=== PATIENT | male | born 1960 | race Caucasian/White ===

== ENCOUNTER 2016-11-27 18:46 | Emergency (ER) | payer BC ==
--- NOTE | 2016-11-27 20:30 | UC ---
Ear Complaint HPI - HPI Summary HPI Summary: left ear plugged for about a week after swimming mild pain - History of Current Complaint Chief Complaint: UCEar Stated Complaint: EAR COMPLAINT Time Seen by Provider: 11/27/16 20:06 Hx Obtained From: Patient Onset/Duration: Gradual Onset, Lasting Days Severity Initially: Mild Severity Currently: Mild Pain Intensity: 2 Pain Scale Used: 0-10 Numeric Associated Signs/Symptoms: Positive: Hearing Loss - Allergies/Home Medications Allergies/Adverse Reactions: Allergies Allergy/AdvReac Type Severity Reaction Status Date / Time No Known Allergies Allergy Verified 11/27/16 19:39 PMH/Surg Hx/FS Hx/Imm Hx Previously Healthy: Yes - Surgical History Surgical History: Yes Surgery Procedure, Year, and Place: LEFT KNEE AND ELBOW SX, sinus surgery - Family History Known Family History: Positive: Hypertension - Social History Alcohol Use: Occasionally Substance Use Type: None Smoking Status (MU): Never Smoked Tobacco Review of Systems Constitutional: Negative Skin: Negative Eyes: Negative ENT: Ear Ache Respiratory: Negative Cardiovascular: Negative Gastrointestinal: Negative Genitourinary: Negative Motor: Negative Neurovascular: Negative Musculoskeletal: Negative Neurological: Negative Psychological: Negative All Other Systems Reviewed And Are Negative: Yes Physical Exam Triage Information Reviewed: Yes Appearance: Well-Appearing, No Pain Distress, Well-Nourished Vital Signs: Initial Vital Signs Temp 98 F 11/27/16 19:31 Pulse 63 11/27/16 19:31 Resp 18 11/27/16 19:31 BP 147/96 11/27/16 19:31 Vital Signs Reviewed: Yes Eyes: Positive: Conjunctiva Clear ENT: Negative: Hearing grossly normal, TMs normal - left TM unable to be visualized due to cerumen no tragl tenderness, Tonsillar swelling, Tonsillar exudate, Trismus, Muffled/hoarse voice Neck: Positive: Supple, Nontender, No Lymphadenopathy Respiratory: Positive: Lungs clear, Normal breath sounds, No respiratory distress, No accessory muscle use Cardiovascular: Positive: RRR, No Murmur Musculoskeletal: Positive: ROM Intact, No Edema Neurological: Positive: Alert Ear Complaint Course/Dx - Course Course Of Treatment: pt advised of elevated BP and need to see his MD for follow up - Differential Dx/Diagnosis Provider Diagnoses: left cerumen impaction Discharge - Discharge Plan Condition: Stable Disposition: HOME Patient Education Materials: Cerumen Impaction (ED) Referrals: Quita Orantes MD [Primary Care Provider] - Additional Instructions: call for any questions return for any problems
[2016-11-27 20:32] VITALS: BP 135/90
== END 2016-11-27 20:35 | disposition home or self-care (01) ==
LOC: UCCORT 18:46
DX: H61.22 Impacted cerumen, left ear (principal)
CPT/HCPCS: 99203; G0463

== ENCOUNTER 2017-06-06 07:02 | Emergency (ER) | payer BC ==
--- OUTSIDE RECORDS SUMMARY | 2017-06-06 07:19 | XMS REPORT ---
:1960 External Reference #:[id number] Author Organization [facility] Address [address] [address] Phone [phone] Care Team Providers Name Role Phone Holly Wagner MD Care Team Information Regulatory Lead Unavailable Payers Type Date Identification Numbers Payment Provider Subscriber Commercial Effective: Policy Number: [id number] [facility] Commercial [employer] 2013 PayID: [id number] [address] [address] [place] [address] Problems Date Description Provider Status Onset: 09/22/2014 History of cerebrovascular accident Holly Wagner MD Active without residual deficits Onset: 09/22/2014 Atopic dermatitis Holly Wagner MD Resolved Resolved: 05/08/2017 Family History Date Family Member(s) Problem(s) Comments Father Heart Disease age 76 Mother Glaucoma Mother Hypertension Social History Type Date Description Comments Education Higest level completed, from [employer] in Bachelor's Degree accounting Marital Status Lives With Spouse Lives With Son Lives With Daughter Diet Healthy, Well Balanced 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 ETOH Use Occasionally consumes alcohol Smoking Patient has never smoked Enjoy Exercising Enjoys Exercising 3-4 times weekly Allergies, Adverse Reactions, Alerts Date Description Reaction Status Severity Comments 09/22/2014 NKDA active Medications Medication Date Status Form Strength Qnty SIG Indications Ordering Provider Multi Vitamin Active Tablets 1 by Unknown Daily 00 mouth every day Aspirin Active Tablets DR 81mg 1 by Unknown 00 mouth every day Vital Signs Date Vital Result Comment 05/08/2017 Weight 219.00 lb Heart Rate 76 /min BP Systolic 130 mmHg BP Diastolic 80 mmHg Respiratory Rate 18 /min Height 73.6 inches 6'1.60 05/08/17 BMI (Body Mass Index) 28.4 kg/m2 11/16/2015 Weight 210.00 lb Heart Rate 76 /min BP Systolic 122 mmHg BP Diastolic 70 mmHg Respiratory Rate 18 /min Height 73.6 inches 6'1.60" 11/16/15 BMI (Body Mass Index) 27.3 kg/m2 09/22/2014 Weight 222.25 lb Heart Rate 80 /min BP Systolic 120 mmHg BP Diastolic 76 mmHg Respiratory Rate 18 /min Height 73.6 inches 6'1.60" 09/22/14 BMI (Body Mass Index) 28.8 kg/m2 Results Test Date Test Result H/L Range Note Laboratory test finding 03/07/2017 Fit(Fecal Occult Negative Negative Blood) CBC With Auto Diff 01/12/2015 WBC 6.4 K/uL 4.1-11.0 1 RBC 4.90 M/uL 4.60-6.10 1 Hemoglobin 15.7 gm/dL 13.5-18.0 1 Hematocrit 45.5 % 41.0-53.0 1 MCV 92.8 fL 80.0-97.0 1 MCH 32.1 pg High 27.0-32.0 1 MCHC 34.6 g/dL 32.0-36.0 1 RDW 12.2 % 11.5-14.5 1 PLT Count 218 K/ul 140-400 1 Neutrophil 63.7 % 35.0-75.0 1 Lymphocyte 24.2 % 16.0-52.0 1 Monocyte 10.0 % 2.0-10.0 1 Eosinophil 1.7 % 0.0-5.0 1 Basophil 0.4 % 0.0-4.0 1 Abs Neutrophils 4.1 K/uL 2.1-8.0 1 Abs Lymphocytes 1.5 K/uL 0.8-5.5 1 Abmon 0.6 K/uL 0.1-1.0 1 Abs Eosinophils 0.1 K/uL 0.0-0.5 1 Abs Basophils 0.0 K/uL 0.0-0.3 1 Lipid 01/12/2015 Cholesterol 132 mg/dL 50-199 1 Triglycerides 105 mg/dL 30-200 1 HDL 40 mg/dL 29-71 1, 2 Chol/ HDL Ratio 3.3 ratio Low 4.0-6.7 1 VLDL 21 mg/dL 2-29 1 LDL (Calc) 71 mg/dL 20-99 1, 3 Comprehensive Metabolic (CMP) 01/12/2015 Sodium 134 mmol/L 134-142 1 Potassium 4.4 mmol/L 3.5-5.2 1 Chloride 102 mmol/L 97-109 1 Carbon Dioxide 26 mmol/L 24-34 1 Glucose 94 mg/dL 70-105 1 BUN 18 mg/dL 6-26 1 Creatinine 1.0 mg/dL 0.5-1.4 1 Calcium 9.2 mg/dL 8.5-10.2 1 Total Protein 6.6 g/dL 6.0-8.0 1 Albumin 4.4 g/dL 3.6-4.9 1 Globulin 2.2 g/dL 2.0-3.5 1 A/G Ratio 2.0 Ratio 1.0-2.2 1 Total Bilirubin 0.7 mg/dL 0.1-1.3 1 Alkaline Phosphatase 53 U/L 24-140 1 Alt 24 U/L 3-42 1 Ast 21 U/L 8-42 1 Anion Gap 10 mmol/L 6-14 1 Kamala Egfr >60 >60 1, 4 Non Kamala Egfr >60 >60 1, 5 Laboratory test finding 01/12/2015 PSA 2.640 ng/mL 0.000-4.000 1, 6 1 soon 2 Per NCEP ATP III Guidelines: Results lower than 40 mg/dL are suggestive of increased risk for coronary artery disease. Results > or=to 60 mg/dL are considered a negative risk factor. 3 Per NCEP ATP III Guidelines: Normal Population <130 Patients with medical conditions: CHD/DM Optimal: <100 Borderline high: 130-159 High: 160-189 Very high: >189 4 Concerning GFR Guidelines for Americans: Normal function or mild renal disease, if clinically at risk: >/=60 mL/min Moderately decreased: 30-59 Severely decreased: 15-29 Renal failure: <15 5 Concerning GFR Guidelines: Normal function or mild renal disease, if clinically at risk: >/=60 mL/min Moderately decreased: 30-59 Severely decreased: 15-29 Renal failure: <15 Glomerular Filtration Rate (GFR) is estimated based on the MDRD equation, which assumes a steady state for creatinine as recommended by the National Kidney Disease Education Program in conjunction with the National Institutes of Health and the National Kidney Foundation. Clinical conditions in which it may be necessary to measure GFR by using clearance methods include extremes of age and body size, severe malnutrition or obesity, diseases of skeletal muscle, paraplegia or quadriplegia, vegetarian diet, rapidly changing kidney function, and calculation of the dose of potentially toxic drugs that are excreted by the kidneys. 6 Beginning 06/23/06 PSA values assayed at [facility] [employer] uses an EIA methodology manufactured by [employer] for use on the DXI analyzer. Values obtained with different assay methods or kits can not be used interchangeably. Serum PSA measurement is not an absolute test for malignancy. The PSA value should be used in conjunction with information available from clinical evaluation and other diagnostic procedures. Procedures Description No Information Encounters Type Date Location Provider CPT E/M Dx Office Visit 11/16/2015 9:15a [facility] [place] [address] Z00.00 Z86.73 L20.9 Z12.5 Z13.220 Office Visit 09/22/2014 8:15a [facility] [place] [address] V70.0 691.8 V77.91 V76.44 V76.51 V12.54 Plan of Care Future Appointment(s):05/14/2018 8:15 am - Holly Wagner MD at [facility]05/08/2017 - Holly Wagner MDZ00.00 Encntr for general adult medical exam w/o abnormal findingsNew Labs:CBC With Auto DiffCMP, Comprehensive Metabolic-FComments:well male - check labs when fastingFollow up:fasting labs soon. 1 year well shxajS60.73 Prsnl hx of TIA (TIA), and cereb infrc w/o resid deficitsNew Labs: Lipid PanelComments:continue aspirin - check lipid panel - continue exercise and weight [id number] Encounter for screening for malignant neoplasm of prostateNew Labs:PSA - FCMGComments:check psaZ11.59 Encounter for screening for other viral diseasesNew Labs:Hepatitis C AntibodyComments:discussed testing for hepatis C - this is recommended for people born between 1945 and 1965. Hepatitis C is an infection of the liver that is spread from contact with infected blood. It can be cured with a tolerable medication. Untreated hepatitis C can cause cirrhosis or liver cancer. patient would like to be tested.Z68.28 Body mass index (BMI) 28.0-28.9, adultComments:The BMI is the ratio of height to weight. Weight loss is desirable. your goal BMI is between 18.9 and 25. Your are overweight. work on improving your diet to help with weight loss.AllComments:gets relief with steroid cream. this may improve with sun exposure.
[2017-06-06 07:38] VITALS: BP 135/91
--- NOTE | 2017-06-06 07:59 | UC ---
UC General HPI - HPI Summary HPI Summary: 56 yo gentleman c/o urinary freq / urg and hematuria since last night. Drank a lot of water, blood not visible today. Some diarrhea yesterday, improving. Taking peptobismal. No fever / chills. Mild low back general discomfort. No discharge. No sores / rash. Some discomfort R lower pelvis. - History of Current Complaint Chief Complaint: UCGU Stated Complaint: URINARY Time Seen by Provider: 06/06/17 07:36 Hx Obtained From: Patient Pain Intensity: 3 - Allergy/Home Medications Allergies/Adverse Reactions: Allergies Allergy/AdvReac Type Severity Reaction Status Date / Time No Known Allergies Allergy Verified 06/06/17 07:25 Home Medications: Home Medications Bismuth Subsalicylate [Pepto Bismol] 524 mg PO ONCE PRN 06/06/17 [History Confirmed 06/06/17] PMH/Surg Hx/FS Hx/Imm Hx Previously Healthy: Yes - Surgical History Surgical History: Yes Surgery Procedure, Year, and Place: LEFT KNEE AND ELBOW SX, sinus surgery - Family History Known Family History: Positive: Hypertension - Social History Alcohol Use: Occasionally Substance Use Type: None Smoking Status (MU): Never Smoked Tobacco Review of Systems Constitutional: Negative Skin: Negative Eyes: Negative ENT: Negative Respiratory: Negative Cardiovascular: Negative Gastrointestinal: Other - see hpi Genitourinary: Other - see hpi Motor: Negative Neurovascular: Negative Musculoskeletal: Negative Neurological: Negative Psychological: Negative Is Patient Immunocompromised?: No All Other Systems Reviewed And Are Negative: Yes Physical Exam Triage Information Reviewed: Yes Appearance: Well-Appearing, Well-Nourished Vital Signs: Initial Vital Signs Temp 97.9 F 06/06/17 07:33 Pulse 65 06/06/17 07:33 Resp 18 06/06/17 07:33 BP 135/91 06/06/17 07:33 Pulse Ox 100 06/06/17 07:33 ENT Exam: Normal - grossly normal Neck exam: Normal Neck: Positive: Supple Respiratory Exam: Normal - no tachypnea no dyspnea normal rate Cardiovascular Exam: Normal - normal rate normal skin color / non-diaphoretic Abdominal Exam: Other - soft ND, tender R lower pelvis no r/g. Denies groin tenderness or kajal adenopathy. Musculoskeletal Exam: Normal - normal gait Neurological Exam: Normal - grossly normal Psychological Exam: Normal - conversing easily and appropriately Course/Dx - Course Course Of Treatment: urine dip noted reviewed with pt. reviewed coa / tx plan. questions as posed answered to the best of my ability. f/u pcp in 2-3 weeks urine recheck - Differential Dx - Multi-Symptom Provider Diagnoses: hematuria Discharge - Discharge Plan Condition: Stable Disposition: HOME Patient Education Materials: Hematuria (ED) Referrals: Holly Wagner MD [Primary Care Provider] - Additional Instructions: Follow up with your doctor in 2-3 weeks for recheck. seek medical attention for worse or new problems in the meantiime. urine culture in the lab. take probiotics fer while taking antibiotics
== END 2017-06-06 08:22 | disposition home or self-care (01) ==
LOC: UCCORT 07:02
DX: R31.9 Hematuria, unspecified (principal)
CPT/HCPCS: 81003; 87086; 99212; G0463

== ENCOUNTER 2018-08-26 19:09 | Emergency (ER) | payer BC ==
--- OUTSIDE RECORDS SUMMARY | 2018-08-26 19:29 | XMS REPORT | Continuity of Care Document ---
:1960 External Reference #:[id number] Author Name Kaia Sinclair M.D. Address [address] [facility] [address] [place] [address] Care Team Providers Name Role Phone Holly Wagner MD Care Team Information Associate Loan Officer Unavailable Holly Wagner MD Primary Care Physician Unavailable Payers Date Identification Numbers Payment Provider Subscriber Effective: 2011 Policy Number: [id number] Rachel Ag Group Number: [id number] [address] [address] Group Name: [facility] RODERICK Krishnamurthy [id number] PayID: [id number] Expires: 2011 Policy Number: [id number] Rachel Ag Group Number: [id number] [address] [address] PayID: [id number] RODERICK Krishnamurthy [id number] Advance Directives Description No Information Available Problems Date Description Provider Status Onset: 12/01/2017 Screening for malignant neoplasm Kaia Sinclair M.D. Active of prostate Onset: 07/15/2017 Calculus in renal pelvis Kaia Sinclair M.D. Active Onset: 07/15/2017 Hematuria syndrome Kaia Sinclair M.D. Active Onset: 06/23/2017 Constipation Kaia Sinclair M.D. Active Onset: 06/23/2017 Retention of urine Kaia Sinclair M.D. Active Onset: 06/23/2017 Raised prostate specific antigen Kaia Sinclair M.D. Active Onset: 06/23/2017 [place] hematuria Kaia Sinclair M.D. Active Onset: 06/23/2017 Kidney stone Kaia Sinclair M.D. 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 Onset: 09/22/2014 Atopic dermatitis Holly Wagner MD Active Family History Date Family Member(s) Observation Comments Father Heart Disease Father due to Heart Disease () Mother Hypertension Mother Heart Disease Mother Glaucoma Social History Type Date Description Comments Sex Unknown Lives With Lives With Children 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 at bedtime Aspirin Active Tablets 81mg 1 po qd Unknown 000 Multivitamins Active Tablets 1 po qd Unknown 000 Probiotic Active Capsules 1 by Unknown 000 mouth every day Cipro Hx Tablets 500mg 6tabs 1 tab by Estella Sinclair - mouth Mahmoud, twice a M.D. 018 day Flomax Hx Capsules 0.4mg 90caps 1 by Dottie 018 - mouth Mahmoud, every day M.D. 018 Immunizations Description No Information Available Vital Signs Date Vital Result Comment 08/07/2018 8:48am BP Systolic 128 mmHg BP Diastolic 83 mmHg Body Temperature 96.3 F Heart Rate 78 /min Respiratory Rate 17 /min Height 73 inches 6'1" Weight 212.25 lb BMI (Body Mass Index) 28.0 kg/m2 BSA (Body Surface Area) 2.21 m2 [place] body weight in kilograms 83 kg O2 % BldC Oximetry 97 % Pain Level 0 04/10/2018 8:17am BP Systolic 144 mmHg BP Diastolic 87 mmHg Body Temperature 98.3 F Heart Rate 81 /min Respiratory Rate 15 /min Height 73 inches 6'1" Weight 227.00 lb BMI (Body Mass Index) 29.9 kg/m2 BSA (Body Surface Area) 2.27 m2 [place] body weight in kilograms 83 kg O2 % BldC Oximetry 98 % Pain Level 0 02/17/2018 8:47am BP Systolic 152 mmHg BP Diastolic 92 mmHg Body Temperature 98.5 F Heart Rate 72 /min Respiratory Rate 18 /min Height 73 inches 6'1" Weight 222.00 lb BMI (Body Mass Index) 29.3 kg/m2 BSA (Body Surface Area) 2.25 m2 [place] body weight in kilograms 83 kg O2 % BldC Oximetry 98 % Pain Level 0 12/01/2017 11:10am BP Systolic 149 mmHg BP Diastolic 89 mmHg Body Temperature 98.1 F Heart Rate 63 /min Respiratory Rate 16 /min Height 73 inches 6'1" Weight 211.00 lb BMI (Body Mass Index) 27.8 kg/m2 BSA (Body Surface Area) 2.20 m2 [place] body weight in kilograms 83 kg O2 % BldC Oximetry 94 % Pain Level 0 07/15/2017 2:04pm BP Systolic 142 mmHg BP Diastolic 104 mmHg 07/15/2017 1:58pm BP Systolic 162 mmHg BP Diastolic 109 mmHg Body Temperature 98.3 F Heart Rate 84 /min Respiratory Rate 18 /min Height 73.5 inches 6'1.50" Weight 219.00 lb BMI (Body Mass Index) 28.5 kg/m2 BSA (Body Surface Area) 2.25 m2 [place] body weight in kilograms 85 kg O2 % BldC Oximetry 96 % Pain Level 0 06/23/2017 10:18am BP Systolic 166 mmHg BP Diastolic 81 mmHg Body Temperature 98.4 F Heart Rate 76 /min Respiratory Rate 18 /min Height 73.5 inches 6'1.50" Weight 215.00 lb BMI (Body Mass Index) 28.0 kg/m2 BSA (Body Surface Area) 2.23 m2 [place] body weight in kilograms 85 kg Pain Level 0 06/23/2017 10:08am Height 73.5 inches 6'1.50" Weight 215.00 lb BMI (Body Mass Index) 28.0 kg/m2 BSA (Body Surface Area) 2.23 m2 [place] body weight in kilograms 85 kg Pain Level 0 09/13/2015 8:17am BP Systolic Sitting Left Arm 132 mmHg BP Diastolic Sitting Left Arm 78 mmHg Heart Rate 68 /min Respiratory Rate 18 /min Height 73.5 inches 6'1.50" Weight 218.00 lb BMI (Body Mass Index) 28.4 kg/m2 BSA (Body Surface Area) 2.24 m2 09/11/2011 8:56am BP Systolic Sitting Right Arm 138 mmHg BP Diastolic Sitting Right Arm 78 mmHg Height 73.5 inches 6'1.50" Weight 227.00 lb BMI (Body Mass Index) 29.5 kg/m2 04/11/2011 2:00pm Height 74 inches 6'2" Weight 205.00 lb BMI (Body Mass Index) 26.3 kg/m2 Results Test Date Facility Test Result H/L Range Note Urine Dipstick 08/07/2018 [facility]a Color yellow Yellow Ua Clarity clear Clear Ua Leuko 70 High Negative Ua Nitrite neg Negative Ua Urobilinogen 0.2 0.2 - 1.0 E.U./dL Ua Protein neg Negative Ua PH 6.0 Low 6.5-7.5 Ua Blood 10 High Negative Ua Specific [place] 1.020 1.010-1.030 Ua Ketones neg Negative Ua Bilirubin neg Negative Ua Glucose neg Negative Basic Metabolic Panel 07/28/2018 [facility] Glucose 108 mg/dL High 74-[address] [place], [place] [id number] [phone] BUN 17 mg/dL N 7-18 Creatinine 1.5 mg/dL High 0.6-1.3 Glom Filtration Rate, Estimate 51 mL/min >60 If >60 mL/min >60 2 BUN/Creat 11.3 ratio Sodium 132 mmol/L Low 136-145 Potassium 3.6 mmol/L N 3.5-5.1 Chloride 100 mmol/L N 98-107 Carbon Dioxide 25 mmol/L N 21-32 Anion Gap 7 mEq/L Low 8-16 Calcium 8.5 mg/dL N 8.5-10.1 CBC W/Automated 07/28/2018 [facility] White Blood 12.7 K/uL High 3.4-10.[address] Count [place], [place] [id number] [phone] Red Blood Count 4.18 M/uL Low 4.20-5.80 Hemoglobin 13.6 gm/dL N 12.8-17.0 Hematocrit 38.5 % N 38.0-48.0 Mean Cell Volume 92.1 fl N 80.0-96.0 Mean Corpuscular HGB 32.5 pg N 27.0-33.0 Mean Corpuscular HGB Conc 35.3 g/dL N 31.7-36.0 Platelet Count 151 K/uL Low 155-360 Red Cell Distri Width SD 39.6 fl N 36-51 Red Cell Distri Width %CV 11.7 % N 11.6-15.8 Mean Platelet Volume 10.5 fl N 6.6-10.6 Neut% 86.5 % High 33.0-73.0 Lymph % 3.0 % Low 20.0-42.0 [place] % 9.0 % N 0.0-10.0 Eo% 0.5 % N 0.0-6.6 Bas% 0.2 % N 0.0-1.1 Immature Grans 0.8 % N 0.0-5.0 NRBC % 0.0 /100WBC < 10/ 100 WBC Neut# 10.97 K/uL High 1.8-7.0 Lymph # 0.38 K/uL Low 1.0-4.0 [place] # 1.14 K/uL High 0.0-0.8 Eos # 0.06 K/uL N 0.0-0.5 Baso # 0.02 K/uL N 0.0-0.1 Immature Grans Absolute 0.10 K/uL NRBC # 0.00 K/uL Urine Culture 07/27/2018 [facility] Urine Culture MIXED KYA Abnormal 3 [address] [place] [address] [phone] Calculi,Urinary 07/27/2018 [facility] Color Jenkins . ,With Photo [address] [place] [address] [phone] Size (SEE NOTE) 4 Weight 66.2 mg . Composition (SEE NOTE) 5 Ca Oxalate,Dihydrate 05 % . Ca Oxalate,Monohydrate 25 % . Calcium Phosphate 50 % . Magnesium Jc Phos 20 % . Nidus No Nidus visuali <SEE NOTE> . 6 . (SEE NOTE) 7 . (SEE NOTE) 8 . (SEE NOTE) 9 Disclaimer (SEE NOTE) 10 Laboratory test 07/22/2018 [facility] Prostate 7.39 ng/mL < 4.0 11, 12 finding [address] [place] [address] Antigen [phone] Laboratory test 04/04/2018 [facility] Prostate 4.33 ng/mL < 4.0 13 finding [address] [place] [address] Antigen [phone] Ua RFX Micro & 04/04/2018 [facility] Urine Color YELLOW Yellow Culture II [address] [place] [address] [phone] Urine Clarity CLEAR Clear Urine Glucose - Dipstick NEGATIVE mg/dL Negative Urine Bilirubin - Dipstick NEGATIVE Negative Urine Ketone NEGATIVE mg/dL Negative Urine Specific [place] 1.015 N 1.010-1.030 Urine Blood NEGATIVE Negative Urine PH 7.0 N 6.5-7.5 Urine Protein - Dipstick NEGATIVE mg/dL Negative Urine Urobilinogen - Dipstick 0.2 E.U./dL N 0.2-1.0 Urine Nitrite - Dipstick NEGATIVE Negative Urine Leuk Esterase TRACE Abnormal Negative Urine RBC 0-2 rbc/hpf 0-2 Urine WBC 0-2 wbc/hpf 0-7 Urine Epithelial Cells VERY FEW /lpf None Seen Urine Bacteria VERY FEW None Seen Urine Amorph Sediment MODERATE Negative Source: URINE, CLEAN CAT <SEE NOTE> 14 Urine Culture 02/17/2018 [facility] Urine Culture URETHRAL KYA [address] [place] [address] [phone] Quantity > 100,000 CFU/mL 15 Urine Dipstick 02/17/2018 [facility] Ua Color yellow Yellow Ua Clarity cloudy Clear Ua Leuko 500 High Negative Ua Nitrite positive Negative Ua Urobilinogen 3.5 High 0.2 - 1.0 E.U./dL Ua Protein neg Negative Ua PH 6.0 Low 6.5-7.5 Ua Blood 10 High Negative Ua Specific [place] 1.015 1.010-1.030 Ua Ketones neg Negative Ua Bilirubin neg Negative Ua Glucose neg Negative Urine Culture 12/01/2017 [facility] Urine Culture URETHRAL KYA 16 [address] [place] [address] [phone] Quantity > 100,000 CFU/mL 17 Culture If 12/01/2017 [facility] Culture If CULTURE TO 18 Indicated Comment [address] Indicated Comment FOLLO <[place] [address] NOTE> [phone] Source: URINE, CLEAN CAT <SEE NOTE> 19 Laboratory test 12/01/2017 [facility] Prostate 6.25 ng/mL < 4.0 [address] [place] [address] Antigen [phone] Ua RFX Micro & 12/01/2017 [facility] Urine Color YELLOW Yellow Culture II [address] [place] [address] [phone] Urine Clarity CLEAR Clear Urine Glucose - Dipstick NEGATIVE mg/dL Negative Urine Bilirubin - Dipstick NEGATIVE Negative Urine Ketone NEGATIVE mg/dL Negative Urine Specific [place] <=1.005 Low 1.010-1.030 Urine Blood SMALL Abnormal Negative Urine PH 6.0 Low 6.5-7.5 Urine Protein - Dipstick NEGATIVE mg/dL Negative Urine Urobilinogen - Dipstick 0.2 E.U./dL N 0.2-1.0 Urine Nitrite - Dipstick POSITIVE Abnormal Negative Urine Leuk Esterase NEGATIVE Negative Urine RBC 0-2 rbc/hpf 0-2 Urine WBC 0-2 wbc/hpf 0-7 Urine Epithelial Cells VERY FEW /lpf None Seen Urine Bacteria FEW None Seen Source: URINE, CLEAN CAT <SEE NOTE> 21 Urine Dipstick 12/01/2017 [facility] Ua Color clear Yellow Ua Clarity clear Clear Ua Leuko neg Negative Ua Nitrite neg Negative Ua Urobilinogen 0.2 0.2 - 1.0 E.U./dL Ua Protein neg Negative Ua PH 6.5 6.5-7.5 Ua Blood 10 High Negative Ua Specific [place] neg Low 1.010-1.030 Ua Ketones neg Negative Ua Bilirubin neg Negative Ua Glucose <pending> Negative pH Ur Strip.auto 06/19/2017 N2N/CCD Import pH Ur Strip.auto 7.0 6.5-7.5 Urobilinogen Ur 06/19/2017 N2N/CCD Import Urobilinogen Ur 0.2 0.2-1.0 Strip-aCnc Strip-aCnc Urine total 06/19/2017 N2N/CCD Import Urine total Negative Negative bilirubin bilirubin detection by detection by automated test automated test strip Urine hemoglobin 06/19/2017 N2N/CCD Import Urine hemoglobin Small High Negative detection by detection by automated test automated test strip strip Urine glucose 06/19/2017 N2N/CCD Import Urine glucose Negative Negative measurement by measurement by automated test automated test strip strip (mass/volume) Urine appearance 06/19/2017 N2N/CCD Import Urine appearance Clear Clear determination determination Specific gravity 06/19/2017 N2N/CCD Import Specific gravity 1.010 1.010- 1.030 of Urine by of Urine by Automated test Automated test strip strip Prot Ur 06/19/2017 N2N/CCD Import Prot Ur Negative Negative Strip.auto-mCnc Strip.auto-mCnc Nitrite Ur Ql 06/19/2017 N2N/CCD Import Nitrite Ur Ql Negative Negative Strip.auto Strip.auto Leukocyte 06/19/2017 N2N/CCD Import Leukocyte Trace High Negative esterase Ur Ql esterase Ur Ql Strip.auto Strip.auto Ketones Ur 06/19/2017 N2N/CCD Import Ketones Ur Negative Negative Strip.auto-mCnc Strip.auto-mCnc Bacteria 06/19/2017 N2N/CCD Import Bacteria Very Few None Seen detection in detection in urine sediment by urine sediment by light micr light microscopy Color Ur 06/19/2017 N2N/CCD Import Color Ur Yellow Yellow Epithelial cells 06/19/2017 N2N/CCD Import Epithelial cells Very Few None Seen detection in detection in urine sediment by urine sediment by li light microscopy Urine Screen 03/31/2011 [facility] Urine Color YELLOW Yellow [address] [place] [address] [phone] Urine Clarity CLEAR Clear Urine Glucose - Dipstick NEGATIVE mg/dL Negative Urine Bilirubin - Dipstick NEGATIVE Negative Urine Ketone NEGATIVE mg/dL Negative Urine Specific [place] 1.010 1.010-1.030 Urine Blood NEGATIVE Negative Urine PH 6.5 6.5-7.5 Urine Protein - Dipstick NEGATIVE mg/dL Negative Urine Urobilinogen - Dipstick 0.2 E.U./dL 0.2-1.0 Urine Nitrite - Dipstick NEGATIVE Negative Urine Leuk Esterase NEGATIVE Negative CBC 03/31/2011 [facility] White Blood Count 8.9 K/uL 3.4-10.5 [address] [place] [address] [phone] Red Blood Count 4.67 M/uL 4.20-5.80 Hemoglobin 14.7 gm/dL 12.8-17.0 Hematocrit 41.9 % 38.0-48.0 Mean Cell Volume 89.7 fl 80.0-96.0 Mean Corpuscular HGB 31.5 pg 27.0-33.0 Mean Corpuscular HGB Conc 35.1 g/dL 31.7-36.0 Platelet Count 247 K/uL 150-400 Red Cell Distri Width %CV 12.0 % 11.6-15.8 Mean Platelet Volume 9.8 fL 6.6-10.6 Basic Metabolic Panel 03/31/2011 [facility] Glucose 99 mg/dL 76-115 [address] [place] [address] [phone] BUN 12 mg/dL 5-23 Creatinine 0.9 mg/dL 0.5-1.4 Glom Filtration Rate, Estimate >60 mL/min >60 If >60 mL/min >60 22 BUN/Creat 13.3 ratio Sodium 136 mmol/L 136-145 Potassium 3.7 mmol/L 3.5-5.1 Chloride 104 mmol/L 98-107 Carbon Dioxide 23 mEq/L 18-29 Anion Gap 13 mEq/L 8-16 Calcium 8.7 mg/dL 8.5-10.1 1 KIDNEY STONE 2 Note: Persistent reduction for 3 months or more in an eGFR <60 mL/min/1.73 m2 defines CKD. Patients with eGFR values >/=60 mL/min/1.73 m2 may also have CKD if evidence of persistent proteinuria is present. The original MDRD equation for estimated GFR is not valid for patients less than 18 years of age. Additional information may be found at www.kdoqi.org. 3 SPECIMEN IS A MIX OF GRAM POSITIVE ORGANISMS CONSISTENT WITH SKIN CONTAMINATION. SUGGEST REPEAT SPECIMEN IF CLINICALLY INDICATED. HOLDING ISOLATES IN MICROBIOLOGY LAB. PLEASE CALL [phone] IF FULL ID/OR SUSCEPTIBILITY DESIRED. 4 Specimen received as fragments. 5 Percentage (Represents the % composition) 6 No Nidus visualized 7 Photograph will follow under separate cover. 8 Physician questions regarding Calculi Analysis contact [employer] at: [phone]. 9 Calculi report with photograph will follow via computer, mail or power marketer delivery. 10 This test was developed and its performance characteristics determined by [employer]. It has not been cleared or approved by the Food and Drug Administration. Performed at: [address] [id number] [employer] Mellowing Machine Operator: Tanvi Milner MD, Phone: [phone] r97.20 12 THIS ASSAY IS NOT INTENDED A CANCER SCREENING TEST The concentration of PSA in a given specimen, determined with assays from different manufacturers, can vary due to differences in assay methods and reagent specificity. Values obtained from different assay methods cannot be used interchangeably. Method: Siemens [employer] [place] Chemiluminescent immunoassay. 13 THIS ASSAY IS NOT INTENDED A CANCER SCREENING TEST The concentration of PSA in a given specimen, determined with assays from different manufacturers, can vary due to differences in assay methods and reagent specificity. Values obtained from different assay methods cannot be used interchangeably. Method: Siemens Dimension [place] Chemiluminescent immunoassay. 14 URINE, CLEAN CATCH 15 > 100,000 CFU/mL 16 R31.9 Z12.5 17 > 100,000 CFU/mL 18 CULTURE TO FOLLOW 19 URINE, CLEAN CATCH 20 THIS ASSAY IS NOT INTENDED A CANCER SCREENING TEST The concentration of PSA in a given specimen, determined with assays from different manufacturers, can vary due to differences in assay methods and reagent specificity. Values obtained from different assay methods cannot be used interchangeably. Method: Siemens Dimension [place] Chemiluminescent immunoassay. 21 URINE, CLEAN CATCH 22 Note: Persistent reduction for 3 months or more in an eGFR <60 mL/min/1.73 m2 defines CKD. Patients with eGFR values >/=60 mL/min/1.73 m2 may also have CKD if evidence of persistent proteinuria is present. The original MDRD equation for estimated GFR is not valid for patients less than 18 years of age. Additional information may be found at www.kdoqi.org. Procedures Date Code Description Status 07/27/2018 83920 Cystourethroscopy W/ Insert Indwelling Ureteral Stent Completed 07/27/2018 74228 Litholapaxy Simple Small < 2.5CM Completed 02/17/2018 60177 Measurement Post Voiding Residual Urine By Completed Ultrasound,Non-Imaging 02/17/2018 71650 complex uroflowmetry electronic Completed 12/01/2017 81258 Measurement Post Voiding Residual Urine By Completed Ultrasound,Non-Imaging 12/01/2017 27365 complex uroflowmetry electronic Completed 07/02/2017 24891 Cystourethroscopy W/ Fulguration Or TX Minor Lesion Completed 07/02/2017 87936 Lithotripsy Extracorporeal Shock Wave Completed 06/23/2017 41645 Irrigation Of Bladder Completed 06/23/2017 08953 Measurement Post Voiding Residual Urine By Completed Ultrasound,Non-Imaging 09/11/2011 21857 Radiology, Elbow: Two Views Completed 06/13/2011 37643 Radiology, Elbow: Two Views Completed 05/09/2011 31324 Radiology, Elbow: Two Views Completed 04/11/2011 32857 Radiology, Elbow: Two Views Completed 03/31/2011 38022 ulnar fracture open proximal end(olecranon process) w/wo Completed int/ext 03/31/2011 66090 Anesthesia, Humerus/Elbow Surgery Open/Surgical Completed Arthroscopic 03/30/2011 88732 EKG Interpretation And Report Only Completed 05/09/2006 38720 Nasal Endoscopy, Diag. Completed Encounters Type Date Location Provider Dx Diagnosis Office Visit 08/07/2018 Urology Keven Gonzalez, N20.1 Calculus of ureter 8:45a PA Office Visit 04/10/2018 Urology Kaia Sinclair, R97.20 Elevated prostate 8:15a M.D. specific antigen [PSA] R33.8 Other retention of urine Office Visit 02/17/2018 8:45a Urology Kaia Sinclair, R33.8 Other retention of M.D. urine R97.20 Elevated prostate specific antigen [PSA] Office Visit 12/01/2017 11:00a Urology Kaia Sinclair R31.9 Hematuria, M.D. unspecified N20.0 Calculus of kidney Z12.5 Encounter for screening for malignant neoplasm of prostate R33.8 Other retention of urine Office Visit 07/15/2017 2:15p Urology Kaia Sinclair R31.9 Hematuria, M.D. unspecified N20.2 Calculus of kidney with calculus of ureter Office Visit 06/23/2017 10:15a UrologKaia Ramos M.D. N20.0 Calculus of kidney R31.0 Gross hematuria R97.20 Elevated prostate specific antigen [PSA] R33.8 Other retention of urine K59.00 Constipation, unspecified Office Visit 09/13/2015 Surgical Office Ozzie Narayanan12.11 Encounter for 8:30a Kavon Newell, screening for M.D. 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 He is known to have bilateral nonobstructing stones ranging in size from 1-5 mm. Patient continues on tamsulosin.
[2018-08-26 19:41] VITALS: BP 138/76
--- NOTE | 2018-08-26 19:52 | ED ---
GI/ HPI - HPI Summary HPI Summary: 58 yr old male with the complaint of fever, chills, right lower quadrant abdominal pain. Onset of symptoms yesterday. He knows that he has obstructing kidney stones on the left, he has a stent and states he is supposed to get lithotripsy next week. He has had some pain on the right side yesterday. He has fever, chills sweats. He denies runny nose, cough, NVD, urinary symptoms, rash, joint pain. He does not feel dizzy or light headed. He took tylenol before coming here. - History of Current Complaint Chief Complaint: UCGeneralIllness Time Seen by Provider: 08/26/18 19:30 Stated Complaint: FEVER CHILLS Pain Intensity: 0 - Allergy/Home Medications Allergies/Adverse Reactions: Allergies Allergy/AdvReac Type Severity Reaction Status Date / Time No Known Allergies Allergy Verified 08/26/18 19:41 Home Medications: Home Medications Acetaminophen [Acetaminophen Extra Strength] 500 mg PO ONCE 08/26/18 [History Confirmed 08/26/18] PMH/Surg Hx/FS Hx/Imm Hx - Surgical History Surgery Procedure, Year, and Place: LEFT KNEE AND ELBOW SX, sinus surgery Infectious Disease History: No Infectious Disease History: Denies: Hx Clostridium Difficile, Hx Hepatitis, Hx Human Immunodeficiency Virus (HIV), Hx Shingles, Hx Tuberculosis, Traveled Outside the in Last 30 Days - Family History Known Family History: Positive: Hypertension - Social History Occupation: Employed Full-time Alcohol Use: Occasionally Substance Use Type: Reports: None Smoking Status (MU): Never Smoked Tobacco Review of Systems Positive: Fever, Chills Positive: Abdominal Pain All Other Systems Reviewed And Are Negative: Yes Physical Exam Triage Information Reviewed: Yes Vital Signs On Initial Exam: Initial Vitals Temp Pulse Resp BP Pulse Ox 100.7 F 111 16 138/76 100 08/26/18 19:36 08/26/18 19:36 08/26/18 19:36 08/26/18 19:36 08/26/18 19:36 Vital Signs Reviewed: Yes Appearance: Positive: Well-Appearing, No Pain Distress Skin: Positive: Warm, Skin Color Reflects Adequate Perfusion Head/Face: Positive: Normal Head/Face Inspection Eyes: Positive: EOMI, MAC[place]IO ENT: Positive: Normal ENT inspection Neck: Positive: Nontender Respiratory/Lung Sounds: Positive: Clear to Auscultation, Breath Sounds Present Cardiovascular: Positive: Tachycardia. Negative: Murmur Abdomen Description: Positive: Nontender. Negative: Distended, Guarding Musculoskeletal: Positive: Strength/ROM Intact Neurological: Positive: Sensory/Motor Intact, Alert, Oriented to Person Place, Time, CN Intact II-III, Normal Gait, Speech Normal Psychiatric: Positive: Normal Diagnostics - Vital Signs Vital Signs Temp Pulse Resp BP Pulse Ox 08/26/18 19:36 100.7 F 111 16 138/76 100 - Laboratory Lab Results: Lab Results 08/26/18 Range/Units 19:47 POC Urine Color Yellow POC Urine Clarity Clear POC Urine pH 6.0 (5-9) POC Ur Specif [place] 1.010 (1.010-1.030) POC Urine Protein Trace A (Negative) POC Ur Glucose (UA) Negative (Negative) POC Urine Ketones 1+ A (Negative) POC Urine Blood 3+ A (Negative) POC Urine Nitrite Positive A (Negative) POC Urine Bilirubin Negative (Negative) POC Urine Urobilinogen 0.2 (Negative) POC U Leukocyte Esteras 2+ A (Negative) Lab Statement: Any lab studies that have been ordered have been reviewed, and results considered in the medical decision making process. GIGU Course/Dx - Course Course Of Treatment: 58 yr old with UTI, and obstructing renal stones with fever. He is going to the ER for further work up. The patient declined an ambulance transfer to the hospital. - Diagnoses Provider Diagnoses: UTI (urinary tract infection), Renal stones Discharge - Sign-Out/Discharge Documenting (check all that apply): Patient Departure All imaging exams completed and their final reports reviewed: No Studies - Discharge Plan Condition: Good Disposition: HOME-RECOMMEND TO ED Patient Education Materials: Kidney Stones (ED), Urinary Tract Infection in Men (ED) Referrals: Holly Wagner MD [Primary Care Provider] - Additional Instructions: You need to go to the ER for further work up of your fever, sepsis. YOu have declined an ambulance and have stated you feel comfortable driving. - Billing Disposition and Condition Condition: GOOD Disposition: Home-Recommend to ED
== END 2018-08-26 19:58 | disposition home health service (06) ==
LOC: UCCORT 19:09
DX: N39.0 Urinary tract infection, site not specified (principal); N20.0 Calculus of kidney; R50.9 Fever, unspecified
CPT/HCPCS: 81003; 87086; 99212; G0463